=== PATIENT | male | born 2000 | race Hispanic/Latino ===

== ENCOUNTER 2022-08-12 17:54 | Emergency (ER) | payer OTHER ==
--- NOTE | 2022-08-12 18:34 | ER ---
Nurse's Notes [facility] Name: Domo Hopson Age: 22 yrs Sex: Male : 2000 Arrival Date: 08/12/2022 Time: 17:54 Bed 12 Private MD: Diagnosis: paronychia Presentation: 08/12 18:10 Chief complaint: Patient states: "2 weeks ago, I broke my toenail on my left big toe. mb9 It started getting bluish/watson today and hurts when I walk or touch it.". Coronavirus screen: Vaccine status: Patient reports receiving the 2nd dose of the covid vaccine. Ebola Screen: No symptoms or risks identified at this time. Initial Sepsis Screen: Does the patient meet any 2 criteria? No. Patient's initial sepsis screen is negative. Does the patient have a suspected source of infection? No. Patient's initial sepsis screen is negative. Risk Assessment: Do you want to hurt yourself or someone else? Patient reports no desire to harm self or others. Onset of symptoms was August 12, 2022. 18:10 Method Of Arrival: Ambulatory mb9 18:10 Acuity: ANISHA 4 mb9 Triage Assessment: 18:12 General: Appears in no apparent distress. Behavior is cooperative. Pain: Complains of mb9 pain in left big toe Pain does not radiate. Pain currently is 5 out of 10 on a pain scale. Quality of pain is described as throbbing, Is intermittent, Aggravated by increased activity, weight bearing. Neuro: Archer Agitation-Sedation Scale (RASS): 0 - Alert and Calm Level of Consciousness is awake, alert, obeys commands, Oriented to person, place, time, situation, Appropriate for age. Cardiovascular: No deficits noted. Respiratory: Airway is patent Respiratory effort is even, unlabored, Respiratory pattern is regular, symmetrical. GI: No signs and/or symptoms were reported involving the gastrointestinal system. Derm: Skin is pink, warm \\T\\ dry. Musculoskeletal: Range of motion: intact in all extremities. Historical: - Allergies: 18:11 No Known Allergies; mb9 - Home Meds: 18:11 None [Active]; mb9 - PMHx: 18:11 None; mb9 - PSHx: 18:11 None; mb9 - Immunization history:: Adult Immunizations up to date. - Social history:: Smoking status: Patient denies any tobacco usage or history of. Screenin:13 [facility] ED Fall Risk Assessment (Adult) History of falling in the last 3 months, mb9 including since admission No falls in past 3 months (0 pts) Confusion or Disorientation No (0 pts) Intoxicated or Sedated No (0 pts) Impaired Gait No (0 pts) Mobility Assist Device Used No (0 pt) Altered Elimination No (0 pt) Score/Fall Risk Level 0 - 2 = Low Risk Oriented to surroundings, Maintained a safe environment, Educated pt \\T\\ family on fall prevention, incl call for assistance when getting out of bed. Abuse screen: Denies threats or abuse. Nutritional screening: No deficits noted. Tuberculosis screening: No symptoms or risk factors identified. Assessment: 18:13 Reassessment: see triage assessment. mb9 18:43 Reassessment: No changes from previously documented assessment. Patient and/or family mb9 updated on plan of care and expected duration. Pain level reassessed. Patient is alert, oriented x 3, equal unlabored respirations, skin warm/dry/pink. Vital Signs: 18:10 BP 133 / 66; Pulse 80; Resp 18; Temp 98; Pulse Ox 100% on R/A; Weight 105.23 kg; Height mb9 5 ft. 7 in. ; 18:43 BP 124 / 72; Pulse 74; Resp 16; Pulse Ox 99% on R/A; mb9 18:10 Body Mass Index 36.34 (105.23 kg, 170.18 cm) mb9 ED Course: 18:00 Patient arrived in ED. [email or web address] 18:01 Jenny Couch FNP-C [facility]. kb 18:01 Brandon Pizarro MD is Attending Physician. kb 18:04 Taylor Gomes RN is Primary Nurse. mb9 18:10 Arm band placed on. mb9 18:11 Triage completed. mb9 18:13 Placed in gown. Bed in low position. Call light in reach. Side rails up X 1. Client mb9 placed on continuous cardiac and pulse oximetry monitoring. NIBP monitoring applied. cafeteria monitor on. 18:13 No provider procedures requiring assistance completed. mb9 18:43 Patient did not have IV access during this emergency room visit. mb9 Administered Medications: No medications were administered Medication: 18:13 VIS not applicable for this client. mb9 Outcome: 18:34 Discharge ordered by . cristin 18:43 Discharged to home ambulatory. mb9 18:43 Condition: stable 18:43 Discharge instructions given to patient, Instructed on discharge instructions, follow up and referral plans. Demonstrated understanding of instructions, follow-up care, medications, Prescriptions given X 1. 18:44 Patient left the ED. mb9 Signatures: Jenny Couch, ADOLFO-C [employer] SUPERVISOR-Lisa Hernández [email or web address] Taylor Gomes, RN RN mb9
--- NOTE | 2022-08-12 18:35 | EDPHYS ---
Physician Documentation [facility] Name: Domo Hopson Age: 22 yrs Sex: Male : 2000 Arrival Date: 08/12/2022 Time: 17:54 Bed 12 Private MD: ED Physician Brandon Pizarro HPI: 08/12 18:31 This 22 yrs old Male presents to ER via Ambulatory with complaints of left kb foot infected toe. 18:32 the patient presents with a swollen area of the left first toe. Description: draining, kb erythematous, swollen. Onset: The symptoms/episode began/occurred 2 week(s) ago. Possible cause(s): unknown. Associated signs and symptoms: Pertinent positives: drainage, erythema, swelling. Modifying factors: the symptoms are alleviated by nothing, the symptoms are aggravated by squeezing the lesion and expressing the contents, touching. Severity of symptoms: At their worst the symptoms were moderate, in the emergency department the symptoms are unchanged. The patient has not experienced similar symptoms in the past. The patient has not recently seen a physician. Pt reports redness and swelling around nail on left great toe that started 2 weeks ago. States it has been draining, but hasn't gone away. Historical: - Allergies: 18:11 No Known Allergies; mb9 - Home Meds: 18:11 None [Active]; mb9 - PMHx: 18:11 None; mb9 - PSHx: 18:11 None; mb9 - Immunization history:: Adult Immunizations up to date. - Social history:: Smoking status: Patient denies any tobacco usage or history of. ROS: 18:31 Constitutional: Negative for fever, chills, and weight loss. kb 18:31 Skin: Positive for erythema, swelling, of the left first toe. 18:31 All other systems are negative. Exam: 18:31 Constitutional: This is a well developed, well nourished patient who is awake, alert, kb and in no acute distress. Head/Face: Normocephalic, atraumatic. ENT: Moist Mucous membranes Respiratory: Respirations even and unlabored. No increased work of breathing. Talking in full sentences MS/ Extremity: Pulses equal, no cyanosis. Neurovascular intact. Full, normal range of motion. Neuro: Awake and alert, GCS 15, oriented to person, place, time, and situation. Moves all extremities. Normal gait. 18:31 Skin: abscess, that is small, of the left first toe, with drainage, that is purulent. Vital Signs: 18:10 BP 133 / 66; Pulse 80; Resp 18; Temp 98; Pulse Ox 100% on R/A; Weight 105.23 kg; Height mb9 5 ft. 7 in. ; 18:43 BP 124 / 72; Pulse 74; Resp 16; Pulse Ox 99% on R/A; mb9 18:10 Body Mass Index 36.34 (105.23 kg, 170.18 cm) mb9 MDM: 18:04 Patient medically screened. kb 18:31 Data reviewed: vital signs, nurses notes. kb 18:33 Differential diagnosis: abscess, cellulitis, paronychia, ingrown nail. Counseling: I kb had a detailed discussion with the patient and/or guardian regarding: the historical points, exam findings, and any diagnostic results supporting the discharge/admit diagnosis, the need for outpatient follow up, a helpdesk analyst, to return to the emergency department if symptoms worsen or persist or if there are any questions or concerns that arise at home. 18:35 ED course: Paronychia open and draining. Educated on warm soaks with epsom salt and kb foot hygiene. . Administered Medications: No medications were administered Disposition: 20:12 Co-signature as Attending Physician, Brandon Pizarro MD I reviewed the patient's care rt provided by the Advanced Practice Provider and agree with the diagnosis and treatment plan. Disposition Summary: 08/12/22 18:34 Discharge Ordered Location: Home kb Condition: Stable kb Diagnosis - paronychia kb Followup: kb - With: Emergency Department - When: As needed - Reason: Worsening of condition Followup: kb - With: Private Physician - When: 2 - 3 days - Reason: Recheck today's complaints, Continuance of care, Re-evaluation by your physician Discharge Instructions: - Discharge Summary Sheet kb - Athlete's Foot, [id number] kb - Paronychia, [id number] kb Forms: - Medication Reconciliation Form kb - Thank You Letter kb - Antibiotic Education kb - Prescription Opioid Use kb Prescriptions: - Bactrim DS 800-160 mg Oral Tablet - take 1 tablet by ORAL route every 12 hours for 10 days; 20 tablet; Refills: 0, kb Product Selection Permitted Signatures: Jenny Couch INDIAN TRADER-C INDIAN TRADER-Ckb Taylor Gomes, RN RN mb9 Brandon Pizarro MD MD rt
== END 2022-08-12 18:44 | disposition home or self-care (01) ==
LOC: ER 17:54
DX: L03.032 Cellulitis of left toe (principal)